=== PATIENT | male | born 1975 | race Caucasian/White ===

== ENCOUNTER 2018-06-23 08:50 | Emergency (ER) | payer SELFPAY ==
[~2018-06-23] VITALS: Ht 167.6 cm; Wt 80.5 kg
[2018-06-23 08:52] VITALS: Ht 167.6 cm; Wt 80.5 kg
[2018-06-23] MEDS ORDERED: ONDANSETRON (ODT) 4 MG TAB ODT STA (09:08)
[2018-06-23] MEDS ORDERED: DIPHTH/TET/ACEL PERTUSS (ADULT) 0.5 ML VIAL IM* ONE (09:30)
[2018-06-23] MEDS ORDERED: LIDOCAINE 1% (MDV) 20 ML INJ SC ONE (09:30)
[2018-06-23] MEDS ORDERED: HYDROCODONE/APAP (5/325) TAB PO ONE (09:30)
[2018-06-23] MEDS ORDERED: CEFAZOLIN 1 GM INJ IM ONE (09:30)
--- NOTE | 2018-06-23 10:59 | EN ---
Date/Time of Note Date/Time of Note DATE: 06/23/18 TIME: 10:57 ER Progress Note Case was discussed in detail with the advanced practice provider [Patient was seen independently] Diagnostic assessment reviewed. I agree with the assessment and care plan as discussed. 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 After discussion with the patient, it was discussed that we can use the amputated part is coverage, but it was unlikely to reimplant. Patient was informed that he would require outpatient hand surgery follow-up for plastics closure. After discussion with the patient including the risk and benefits of using the tip for coverage, this was decided that we would cover the tip of the amputated part with the amputated part. WADE ALCARAZ Jun 23, 2018 10:59
[2018-06-23] MEDS ORDERED: HYDR-4011 PO (11:15)
[2018-06-23] MEDS ORDERED: NAPR-985 PO (11:15)
[2018-06-23] MEDS ORDERED: CEPH-443 PO (11:15)
[2018-06-23 11:36] VITALS: BP 131/86; PULSE 74; RESP 18
--- NOTE | 2018-06-23 11:51 | ERD ---
ER Documentation Chief Complaint Chief Complaint left 4th finger laceration; crushed HPI Male presenting with laceration to right fourth digit. 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 He is right-hand dominant. Not recall his last tetanus shot. Denies other medical pr oblems. NKDA. Surgical history denies. Social history denies ROS All systems reviewed and are negative except as per history of present illness. Medications Home Meds Active Scripts Naproxen* (Naprosyn*) 500 Mg Tablet, 500 MG PO BID PRN for PAIN AND/OR INFLAMMATION, #30 TAB Prov:MANULE GONZALES PA-C 06/23/18 Hydrocodone/Acetaminophen ([place] 5-325 Tablet) 1 Each Tablet, 1 TAB PO Q6H PRN for PAIN, #7 TAB Prov:MANUEL GONZALES PA-C 06/23/18 Cephalexin* (Keflex*) 500 Mg Capsule, 500 MG PO QID for 7 Days, CAP Prov:MANUEL GONZALES PA-C 06/23/18 Allergies Allergies: Coded Allergies: No Known Drug Allergies (Verified Allergy, Unknown, 06/23/18) PMhx/Soc Medical and Surgical Hx: pt denies Medical Hx, pt denies Surgical Hx FmHx Family History: No diabetes, No coronary disease, No other Physical Exam Vitals Vital Signs Date Temp Pulse Resp B/P (MAP) Pulse Ox O2 O2 Flow FiO2 Time Delivery Rate 06/23/18 74 18 131/86 98 Room Air 11:36 (101) 06/23/18 98.2 101 20 142/90 100 08:52 (107) Physical Exam GENERAL: The patient is well-appearing, well-nourished, in no acute distress CHEST: Clear to auscultation bilaterally. There are no rales, wheezes or rhonchi. HEART: Regular rate and rhythm. No murmurs, clicks, rubs or gallops. EXTREMITIES: Equal pulses bilaterally. There is no peripheral clubbing, cyanosis or edema. No focal swelling or erythema. NEUROLOGIC: Motor strength in all 4 extremities with 5 out of 5 strength. Sensation grossly intact. SKIN: Full avulsion noted of the right fourth digit. Mild active bleeding. Nail avulsed. Results 24 hrs Current Medications Medications Dose Sig/Wood Start Time Status Last (Trade) Ordered Route PRN Stop Time Admin Dose Reason Admin Cefazolin 1 gm ONCE ONCE 06/23/18 DC 06/23/18 Sodium IM 09:30 06/23/18 09:18 (Ancef) 09:31 Diphtheria/ 0.5 ml ONCE ONCE 06/23/18 DC 06/23/18 Tetanus/Acell IM* 09:30 06/23/18 09:19 Pertussis 09:31 (Adacel) Lidocaine 20 ml ONCE ONCE 06/23/18 DC (Xylocaine SC 09:30 06/23/18 1% (Mdv) 20 09:31 ml) 1 tab ONCE ONCE 06/23/18 DC 06/23/18 Acetaminophen PO 09:30 06/23/18 09:18 / 09:31 Hydrocodone Bitart ([place] (5/325)) Ondansetron 4 mg ONCE STAT 06/23/18 DC 06/23/18 HCl (Zofran ODT 09:08 06/23/18 09:18 Odt) 09:10 Procedures/MDM DIAGNOSTIC IMAGING REPORT Patient: SAÚL MERINO : 1975 Age: 43 Sex: M MR #: [id number] DOS: 06/23/18 0908 Ordering MD: ROOSEVELT GONZALES PA-C Location: [facility] Room/Bed: PROCEDURE: XR Finger. CLINICAL INDICATION: Injury TECHNIQUE: 3 views of the right fourth finger are available for review. COMPARISON: None available FINDINGS: There has been laceration/amputation of the soft tissues overlying the fourth distal phalanx. There is slight cortical irregularity at the tuft. IMPRESSION: 1. Soft tissue amputation/laceration at the fourth distal phalanx with cortical injury at the tuft. 2. No radiopaque foreign body is seen. Laceration Repair by me: Anesthesia: 1% lidocaine locally Location: Left fourth digit. Distal tip. Tendon/Joint/Nerves: No injury Foreign body: None detected after copious irrigation and exploration Technique: 8 4.0 N Simple Interrupted Sutures Complexity: No subcutaneous sutures/mucosal repair/edge excision Post Closure Length: Full-thickness avulsion of the left distal tip. Patient's bleeding was easily controlled in the department and there is no indication of anemia. No evidence of compartment syndrome, neurologic injury, vascular injury, open joint, tendon laceration, or foreign body. Patient is appropriate for outpatient follow up. 48 hour wound check. Scar minimization instructions given. *Avulsed portion of the fingertip was reapplied to act as a physiological Band- Aid. ER course: Tetanus given ED. Ancef IM given in ED. Wound was cleaned with copious amounts of normal saline and dressed with Xeroform. Finger splint applied in ED. MDM: 43-year-old male presenting with avulsed tip of the right fourth digit. Patient is a chronic fracture we treated with oral antibiotics. Patient is told to follow-up with hand specialist within the next day. I have low suspicion for tendon or ligament rupture as patient is able to isolate the DIP and PIP joint. Patient is also discharged with pain medications. All questions answered at discharge Departure Diagnosis: Primary Impression: Finger injury Condition: Stable Patient Instructions: Crush Injury, Hand/Finger Referrals: [facility] Additional Instructions: FOLLOW UP WITH YOUR PRIMARY CARE PHYSICIAN TOMORROW.Return to this facility if you are not improving as expected. MANUEL GONZALES PA-C Jun 23, 2018 11:51
== END 2018-06-23 11:39 | disposition home or self-care (01) ==
LOC: FTE 08:50
DX: S61.215A Laceration without foreign body of left ring finger without damage to nail, initial encounter (principal); W23.1XXA Caught, crushed, jammed, or pinched between stationary objects, initial encounter; Y92.69 Other specified industrial and construction area as the place of occurrence of the external cause; Z23 Encounter for immunization
CPT/HCPCS: 12001; 73140; 90715; J0690; 90471; 96372